=== PATIENT | female | born 1945 | race Caucasian/White ===

== ENCOUNTER 2018-06-28 13:58 | Emergency (ER) | payer MEDICARE, OTHER ==
[2018-06-28 15:24] LABS: #Eosinphils 0.4 thou/uL (0.0-0.7); #Lymphocytes 1.2 thou/uL (1.20-3.40); #Monocytes 0.3 thou/uL (0.11-0.59); #Neutrophils 3.6 thou/uL (1.40-6.50); %Basophils 0.3 % (0.0-1.0); %Eosinophils 6.6 % (0.0-10.0); %Lymphocytes 22.6 % (21.0-51.0); %Neutrophils 65.6 % (42.0-75.0); Hemoglobin 12.3 g/dL (12.0-16.0); Mean Corpuscular HGB CONC 32.7 g/dL (32.0-36.0); Mean Corpuscular Hemoglobin 29.6 pg (27.0-31.0); Mean Corpuscular Volume 90.6 fL (78.0-98.0); Mean Platelet Volume 7.5 fL (7.4-10.4); Platelet Count 179 thou/uL (130-400); RBC Distribution Width 12.8 % (11.5-14.5); Red Blood Cell (RBC) Count 4.14 mill/uL (4.20-5.40); White Blood Cell (WBC) Count 5.5 thou/uL (4.8-10.8)
[2018-06-28] MEDS ORDERED: Oxymetazoline HCl 0.05% ( 15 ML ) ONE (15:33)
[2018-06-28 15:46] LABS: ALT (SGPT) 19 U/L (8-55); AST (SGOT) 19 U/L (5-34); Albumin 4.5 g/dL (3.4-4.8); Alkaline Phosphatase 78 U/L (40-150); Anion Gap 15 mmol/L (10-20); BUN (Urea Nitrogen) 18 mg/dL (9.8-20.1); Bilirubin, Total 0.5 mg/dL (0.2-1.2); Calc. Creatinine Clearance 0 mL/min (70-130); Calcium 9.6 mg/dL (7.8-10.44); Carbon Dioxide 24 mmol/L (23-31); Chloride 104 mmol/L (98-107); Estimated GFR-MDRD 40; Globulin 2.3 g/dL (2.4-3.5); Glucose 120 mg/dL (83-110); Potassium 4.6 mmol/L (3.5-5.1); Protein, Total 6.8 g/dL (6.0-8.3); Sodium 138 mmol/L (136-145)
== END 2018-06-28 16:19 | disposition home or self-care (01) ==
LOC: ERS 13:58
DX: R04.0 Epistaxis (principal); E11.9 Type 2 diabetes mellitus without complications; E78.5 Hyperlipidemia, unspecified; I10 Essential (primary) hypertension
CPT/HCPCS: 30905; 36415; 80053; 85025

== ENCOUNTER 2018-09-03 21:33 | Inpatient (IN) | payer MEDICARE ==
--- NOTE | 2018-09-03 22:13 | RAD ---
FExam: Left ankle radiographs 3 views Provided clinical history: Pain status post injury FINDINGS: Obliquely oriented mildly displaced Scott B distal fibular fracture. Nondisplaced posterior malleolar fracture. Avulsion fracture medial malleolus. Widening of the ankle mortise. Joint spaces appear pre served. IMPRESSION: Distal tibial and fibular fractures with associated widening of the ankle mortise. Orthopedic consult ation is recommended.
[2018-09-03] MEDS ORDERED: Morphine 4 MG/ML VIAL ONE (22:25)
[2018-09-03] MEDS ORDERED: Ondansetron PF 4 MG/2 ML Vial ONE (22:25)
[2018-09-03] MEDS ORDERED: Bacitracin Zinc 1 Packet ONE (22:36)
--- NOTE | 2018-09-03 22:52 | RAD ---
FExam: Portable chest Provided clinical history: Preop FINDINGS: Cardiac and mediastinal silhouette is within normal limits. No focal consolidation, pleural fluid or pneumothorax evident. IMPRESSION: No evidence for an acute cardiopulmonary process.
[2018-09-03 23:03] LABS: #Eosinphils 0.3 thou/uL (0.0-0.7); #Lymphocytes 0.9 thou/uL (1.20-3.40); #Monocytes 0.4 thou/uL (0.11-0.59); #Neutrophils 3.2 thou/uL (1.40-6.50); %Basophils 0.2 % (0.0-1.0); %Eosinophils 5.6 % (0.0-10.0); %Lymphocytes 19.5 % (21.0-51.0); %Monocytes 7.6 % (0.0-10.0); %Neutrophils 67.2 % (42.0-75.0); Hemoglobin 12.1 g/dL (12.0-16.0); INR-International Normal Ratio 0.9; Mean Corpuscular HGB CONC 34.2 g/dL (32.0-36.0); Mean Corpuscular Hemoglobin 30.9 pg (27.0-31.0); Mean Corpuscular Volume 90.2 fL (78.0-98.0); Mean Platelet Volume 7.3 fL (7.4-10.4); PTT 26.8 SEC (22.9-36.1); Platelet Count 179 thou/uL (130-400); Prothrombin Time 12.2 SEC (12.0-14.7); RBC Distribution Width 11.7 % (11.5-14.5); Red Blood Cell (RBC) Count 3.93 mill/uL (4.20-5.40); White Blood Cell (WBC) Count 4.8 thou/uL (4.8-10.8)
[2018-09-03] MEDS ORDERED: Ondansetron PF 4 MG/2 ML Vial IVP PRN ×2 (23:12→23:57)
[2018-09-03] MEDS ORDERED: Dextrose 50% Abboject 50 ML SYRINGE SLOW IVP PRN (23:12)
[2018-09-03] MEDS ORDERED: hydrALAZINE 20 MG/ML VIAL SLOW IVP PRN (23:12)
[2018-09-03] MEDS ORDERED: Dextrose 5% in Water 1,000 ML IV PRN (23:12)
[2018-09-03] MEDS ORDERED: Ondansetron ODT 4 MG TAB PO PRN (23:12)
[2018-09-03 23:17] LABS: ALT (SGPT) 18 U/L (8-55); AST (SGOT) 18 U/L (5-34); Albumin 4.3 g/dL (3.4-4.8); Alkaline Phosphatase 78 U/L (40-150); Anion Gap 12 mmol/L (10-20); BUN (Urea Nitrogen) 26 mg/dL (9.8-20.1); Bilirubin, Total 0.4 mg/dL (0.2-1.2); Calc. Creatinine Clearance 0 mL/min (70-130); Calcium 9.7 mg/dL (7.8-10.44); Carbon Dioxide 29 mmol/L (23-31); Chloride 99 mmol/L (98-107); Estimated GFR-MDRD 31; Globulin 2.4 g/dL (2.4-3.5); Glucose 104 mg/dL (83-110); Potassium 3.2 mmol/L (3.5-5.1); Protein, Total 6.7 g/dL (6.0-8.3); Sodium 137 mmol/L (136-145)
[2018-09-03] MEDS ORDERED: traMADol HCl 50 MG TAB PO PRN (23:23)
[2018-09-03] MEDS ORDERED: Acetaminophen 500 MG TAB PO SCH (23:30)
[2018-09-03] MEDS ORDERED: cloNIDine 0.1 MG TAB PO PRN (23:34)
[2018-09-03] MEDS ORDERED: D5 1/2 NS w/20 mEq KCL 1,000 ML IV SCH (23:45)
[2018-09-03] MEDS ORDERED: Melatonin 3 MG TAB PO SCH (23:45)
[2018-09-03] MEDS ORDERED: Morphine 4 MG/ML VIAL SLOW IVP PRN (23:57)
[2018-09-03] MEDS ORDERED: Ondansetron ODT 4 MG TAB SL PRN (23:57)
[2018-09-03] MEDS ORDERED: traMADol HCl 50 MG TAB PO SCH (23:59)
--- NOTE | 2018-09-04 00:32 | HP ---
This is Kelsea Little NP dictating a report for Reynaldo Jimenez MD. REQUESTING PHYSICIAN: Dr. Quiroz. ATTENDING PHYSICIAN: Dr. Jimenez. HISTORY OF PRESENT ILLNESS: This is a 73-year-old female who presented to the emergency room via EMS status post a mechanical fall. The patient reports left ankle pain after falling. The patient also reports left shoulder contusion and abrasion to left elbow. The patient has good range of motion to left shoulder. The patient has been n.p.o. since 1930. The patient denies feeling weak, dizzy, having any chest pain or palpitations or dizziness prior to falling. States she is walking on the hallway with multiple items in her hand, heading to bed in which she is walking on a slight incline and fell. The patient did bump the left side of her forehead. The patient has a small contusion. No loss of consciousness. No nausea or vomiting. The patient had a left splint placed by the emergency room physician to the left ankle. PAST MEDICAL HISTORY: Diabetes, hyperlipidemia, hypertension, osteoarthritis. PAST SURGICAL HISTORY: Hysterectomy, bilateral knee replacement, last one left knee in January 2018 due to arthritis, cataract surgery, and tonsillectomy. SOCIAL HISTORY: The patient lives at home with her . The patient drinks socially occasionally. The patient denies any drug use. The patient denies smoking. REVIEW OF SYSTEMS: A 10-point review of systems is negative unless otherwise indicated in the above HPI. LABORATORY DATA: WBC 4.8, RBC 3.93, hemoglobin 12.1, hematocrit 35.5, platelets 179. PT 12.2, INR is 0.9, APTT 26.8. CMP pending. A 12-lead EKG, sinus Germán of 59. No ST elevation or ST-segment changes. Ankle x-ray, distal tibia and fibular fractures with associated widening in the ankle mortise. Chest x-ray, no evidence of an acute cardiopulmonary process. IMPRESSION: 1. Mechanical fall. 2. Left distal tib-fib fracture. 3. Acute traumatic pain. 4. History of hypertension, diabetes, osteoarthritis, and nerve pain. PLAN: We will admit the patient to the surgical ortho floor. The patient will be placed n.p.o. After midnight. Dr. Jimenez plans to take the patient for repair of left ankle tomorrow morning sometime. The patient will be placed on pain regimen, bowel regimen, and gastric prophylaxis. We will place a PT/OT consult for after surgery. We will also place a rehab screen just in case the patient needs inpatient rehab. The plan will be discussed with Dr. Mcclendon after this dictation. Job ID: [id number]
[2018-09-04] MEDS: Morphine 4 MG/ML VIAL SLOW IVP PRN ×2 (00:41→04:00)
[2018-09-04] MEDS: Acetaminophen 500 MG TAB PO SCH ×5 (00:42→21:16)
[2018-09-04] MEDS: traMADol HCl 50 MG TAB PO SCH ×3 (00:42→12:25)
[2018-09-04] MEDS: Sodium Chloride 0.9% 1,000 ML IV SCH ×3 (00:43→23:14)
[2018-09-04 02:10] VITALS: BMI 32.3
[2018-09-04] MEDS: Ibuprofen 800 MG TAB PO SCH ×3 (06:24→21:16)
[2018-09-04 07:16] LABS: #Eosinphils 0.3 thou/uL (0.0-0.7); #Monocytes 0.4 thou/uL (0.11-0.59); #Neutrophils 2.3 thou/uL (1.40-6.50); %Basophils 0.3 % (0.0-1.0); %Eosinophils 6.8 % (0.0-10.0); %Lymphocytes 24.9 % (21.0-51.0); %Monocytes 9.7 % (0.0-10.0); %Neutrophils 58.2 % (42.0-75.0); Hemoglobin 10.4 g/dL (12.0-16.0); Mean Corpuscular Hemoglobin 31.1 pg (27.0-31.0); Mean Corpuscular Volume 91.4 fL (78.0-98.0); Mean Platelet Volume 7.6 fL (7.4-10.4); Platelet Count 138 thou/uL (130-400); RBC Distribution Width 11.6 % (11.5-14.5); Red Blood Cell (RBC) Count 3.36 mill/uL (4.20-5.40); White Blood Cell (WBC) Count 3.9 thou/uL (4.8-10.8)
[2018-09-04 07:35] LABS: Anion Gap 9 mmol/L (10-20); BUN (Urea Nitrogen) 24 mg/dL (9.8-20.1); Calc. Creatinine Clearance 50 mL/min (70-130); Calcium 8.5 mg/dL (7.8-10.44); Carbon Dioxide 29 mmol/L (23-31); Chloride 103 mmol/L (98-107); Estimated GFR-MDRD 35; Glucose 105 mg/dL (83-110); Magnesium 1.8 mg/dL (1.6-2.6); Phosphorus 3.9 mg/dL (2.3-4.7); Potassium 3.8 mmol/L (3.5-5.1); Sodium 137 mmol/L (136-145)
[2018-09-04] MEDS ORDERED: CEFAZOLIN 2 GM in Premix Bag 1 BAG IVPB SCH (08:15)
--- NOTE | 2018-09-04 08:38 | CON ---
DATE OF CONSULTATION: We were asked by Trauma and Emergency Room to see the patient. The patient was in her normal state of health yesterday when she thinks she missed a step on the stairs and fell down, had immediate left ankle pain. She also complains of some left shoulder pain and hit the left side of her forehead, but no loss of consciousness and she remembers the incident well. The patient was brought to the emergency room by ambulance and then was admitted. They did put a splint on her left ankle, dressed up her left elbow, but she still has quite a bit of left shoulder pain. No numbness or tingling in the upper extremities or lower extremities and states her pain is stinging type pain. Her Jon wrap was loosened last night, but this did help, but she still has quite a bit of pain. PAST MEDICAL HISTORY: Diabetes, hyperlipidemia, hypertension, and osteoarthritis. PAST SURGICAL HISTORY: Hysterectomy, bilateral knee replacement, cataract surgery, and tonsils. SOCIAL HISTORY: Moved to [place] to be with her children. Lives at home with her . Has very occasional EtOH beverages. No alcohol or nicotine products. ALLERGIES: NO KNOWN DRUG ALLERGIES. MEDICATIONS: 1. Amitriptyline. 2. . 3. Calcium citrate with vitamin D. 4. Clonidine. 5. Duloxetine. 6. Nexium. 7. Estradiol. 8. Flonase. 9. Lasix. 10. Gabapentin. 11. Hydralazine. 12. Levothyroxine. 13. Losartan. 14. Melatonin. 15. Meloxicam. 16. Multivitamins. 17. Bystolic. 18. Polyethylene glycol. 19. Crestor. 20. Januvia. 21. Tramadol. REVIEW OF SYSTEMS: Denies any chest pain, shortness of breath, bowel or bladder issues, just left shoulder and ankle pain. Otherwise, rest review of systems negative. PHYSICAL EXAMINATION: GENERAL: Well-nourished, well-developed, very pleasant female in room 3338, in no acute distress. Speech clear. Affect pleasant. Answers questions appropriately. She is oriented x3. HEENT: She has a little bit of a contusion in the left forehead. Otherwise, face is symmetric. Tongue midline. NECK: Supple. Trachea midline. EXTREMITIES: Upper extremities; equal size, shape, and symmetry. Normal bulk and tone with the exception of her elbow, which is bandaged. Left shoulder exam, she is able to move it fairly well. I do not feel any crepitus or popping in her shoulder, but she does have quite a bit of pain with moving that shoulder. All of her strength sensations in the upper extremities are intact. Lower extremity exam, left lower extremity is splinted, which she is able to wiggle her toes and has good sensations. Right lower extremity, normal exam. IMAGING DATA: X-rays show a left ankle fracture, distal tibia and fibula areas. ASSESSMENT: Left ankle fracture. PLAN: I spoke with the patient. She is currently n.p.o. I would like to get her on for the surgery today due to plating and screws. I explained that procedure to the patient. She is happy with the plan. We will keep her n.p.o. She has been cleared by Trauma. Her questions and concerns have been addressed. Again, she is amenable to go forth with surgery. Job ID: [id number]
--- NOTE | 2018-09-04 09:22 | RAD ---
LEFT SHOULDER THREE VIEWS: History: Pain. FINDINGS: Humeral head is normally positioned. Very mild degenerative change at the glenohumeral joint. Mild sp urring at the AC joint. No fracture or acute abnormality. IMPRESSION: No acute findings. POS: [facility]
--- NOTE | 2018-09-04 09:23 | RAD ---
FXR Sacrum and Coccyx STANDARD: 09/04/2018 8:00 AM 3 views provided CLINICAL INDICATION: Fall with pain COMPARISON: None. FINDINGS: Fracture:No fracture. Arthropathy:Moderate arthropathy. Incidental findings:Pelvic phleboliths IMPRESSION: 1. No acute osseous abnormality.
[2018-09-04] MEDS: Gabapentin 300 MG CAP PO SCH ×3 (09:51→21:17)
[2018-09-04] MEDS: Famotidine/PF 20 mg/2ml Vial SLOW IVP SCH (09:51)
[2018-09-04] MEDS ORDERED: Cyclobenzaprine 10 MG TAB PO PRN (09:54)
[2018-09-04] MEDS ORDERED: Nebivolol HCl 5 MG TAB PO SCH ×2 (10:15→21:00)
[2018-09-04] MEDS: Polyethylene Glycol 3350 17 GM Packet PO SCH (11:09)
[2018-09-04] MEDS: Senokot S 8.6-50 MG TAB PO SCH ×2 (11:09→21:18)
[2018-09-04] MEDS ORDERED: Ropivacaine 0.5% HCl/PF (150 MG/30 ML VIAL) ONE (13:10)
[2018-09-04] MEDS ORDERED: Promethazine HCl 25 MG/ML VIAL SLOW IVP PRN ×2 (13:51→15:55)
[2018-09-04] MEDS ORDERED: Promethazine HCl 25 MG/ML VIAL IM PRN ×3 (13:51→15:55)
[2018-09-04] MEDS ORDERED: Ondansetron HCl/PF 4 MG/2 ML Vial IVP PRN ×2 (13:51→15:55)
[2018-09-04] MEDS ORDERED: PROPOFOL 200 MG/20 ML VIAL ONE (13:52)
[2018-09-04] MEDS ORDERED: PHENYLEPHRINE-NS 100 MCG/ML 10 ML SYRINGE ONE (13:52)
[2018-09-04] MEDS ORDERED: Ondansetron PF 4 MG/2 ML Vial ONE (13:52)
[2018-09-04] MEDS ORDERED: Dexamethasone 20 MG/5 ML VIAL ONE (13:52)
[2018-09-04] MEDS ORDERED: ePHEDrine 50 MG/ML VIAL ONE (13:52)
[2018-09-04] MEDS ORDERED: Lidocaine 1% PF 5 ML VIAL ONE (13:52)
[2018-09-04] MEDS ORDERED: Midazolam HCl 2 mg/2 ml Vial ONE (14:00)
[2018-09-04] MEDS ORDERED: Fentanyl 100 MCG/2 ML VIAL ONE ×2 (14:00→14:22)
[2018-09-04] MEDS ORDERED: Bupivacaine PF 0.5% 30 ML VIAL ONE (14:09)
[2018-09-04] MEDS ORDERED: HYDROcodone/Acetaminophen 10/325 mg Tablet PO PRN ×2 (14:39)
[2018-09-04] MEDS ORDERED: Ropivacaine 0.2% 550 ML 550 ML NERVE BLCK SCH (14:39)
[2018-09-04] MEDS ORDERED: Zolpidem Tartrate 5 MG TAB PO PRN (14:39)
[2018-09-04] MEDS ORDERED: Ondansetron PF 4 MG/2 ML Vial IVP PRN (14:39)
[2018-09-04] MEDS ORDERED: traMADol HCl 50 MG TAB PO PRN ×2 (14:39)
[2018-09-04] MEDS ORDERED: Fentanyl 100 MCG/2 ML VIAL IV PRN (14:40)
[2018-09-04] MEDS ORDERED: Ketorolac Tromethamine 30 MG/ML VIAL IVP PRN (15:55)
[2018-09-04] MEDS ORDERED: HYDROmorphone 2 MG/ML VIAL SLOW IVP PRN (15:55)
[2018-09-04] MEDS ORDERED: Morphine Sulfate 2 MG/ML SYRINGE SLOW IVP PRN (15:55)
[2018-09-04] MEDS ORDERED: Meperidine HCl/PF 25 MG/ML VIAL SLOW IVP PRN (15:55)
--- NOTE | 2018-09-04 16:47 | RAD ---
LEFT ANKLE FOUR VIEW 09/04/18 HISTORY: ORIF. COMPARISON: None. FINDINGS: Satisfactory postoperative appearance distal fibular fracture with lateral plate and screw fixation. No syndesmotic screw. IMPRESSION: Satisfactory postoperative appearance. POS: [facility]
--- NOTE | 2018-09-04 17:21 | PRG ---
DATE OF SERVICE: 09/03/2018 SUBJECTIVE: The patient was seen this morning sitting up in bed. Reports pain is well controlled, but was having muscle spasms earlier during the morning. She is n.p.o. for OR today with Dr. Jimenez for a left distal tib-fib fracture. She denies nausea, vomiting, or diarrhea at this time. OBJECTIVE: VITAL SIGNS: Temperature 97.9, pulse 56, respirations 18, oxygen saturation 96% on room air, blood pressure 107/70. GENERAL: Well-appearing elderly female, sitting up in bed with no signs of acute distress. PULMONARY: Equal chest rise and fall. Clear breath sounds bilaterally, no acute respiratory distress. CARDIAC: Regular rate and rhythm. No murmurs, gallops, or rubs. GI: Abdomen is soft, nontender, nondistended. EXTREMITIES: Left lower extremity with splint in place. 2+ pulses in all extremities. Gross motor and sensation in all extremities. No significant swelling noted. LABORATORY FINDINGS: White count 3.9, hemoglobin 10.4, hematocrit 30.7, platelets 138. Sodium 137, potassium 3.8, chloride 103, carbon dioxide 29, BUN 24, creatinine 1.47, glucose 105, phosphorus 3.9, magnesium 1.8. DIAGNOSTIC FINDINGS: There are no new diagnostic findings to report. ASSESSMENT: 1. Status post mechanical fall. 2. Left distal tibial-fibular fracture. 3. Acute kidney injury, improving. 4. History of diabetes. 5. Hyperlipidemia. 6. Hypertension. 7. Osteoarthritis. PLAN: We will start the patient on p.o. Flexeril. She is still n.p.o. with normal saline at 120 an hour. We will discontinue fluids postoperatively. Continue to hold antihypertensive medications and her Bystolic. We will restart those medications as clinically indicated. X-ray completed of the left shoulder and sacrum were negative for injuries. Postop, the patient will start physical and occupational therapy to assess whether she is safe to go home versus inpatient rehab. She will receive a diabetic diet postoperatively. The patient was discussed with Dr. Aaron. Job ID: [id number]
[2018-09-04] MEDS ORDERED: NEBIVOLOL HCL PO SCH (21:00)
[2018-09-04] MEDS: Rosuvastatin 10 MG TAB PO SCH (21:17)
[2018-09-04] MEDS: Amitriptyline HCl 100 MG TAB PO SCH (21:18)
[2018-09-04] MEDS: Calcium Carbonate + Vit D 1 TAB PO SCH (21:18)
[2018-09-04] MEDS: CEFAZOLIN 2 GM in Premix Bag 1 BAG IVPB SCH (21:19)
[2018-09-04] MEDS: Melatonin 3 MG TAB PO SCH (21:19)
--- NOTE | 2018-09-04 21:30 | OP ---
DATE OF PROCEDURE: 09/04/2018 PREOPERATIVE DIAGNOSIS: Left bimalleolar ankle fracture. POSTOPERATIVE DIAGNOSIS: Left bimalleolar ankle fracture. PROCEDURE PERFORMED: Open reduction and internal fixation of left lateral malleolus fracture. ANESTHESIA: General. RIBBER: Paloma Juan. IMPLANT: Synthes 1/3 tubular 7-hole plate with small fragment screws. TOURNIQUET TIME: 35 minutes at 300 mmHg. COMPLICATIONS: None. DRAINS: None. SPECIMEN: None. OUTCOME: Near-anatomic alignment of her ankle. INDICATIONS FOR PROCEDURE: The patient is a 73-year-old lady status post ground level fall sustaining twisting injury of her left ankle. Preoperative x-rays reveal a displaced lateral malleolus with lateral displacement of the talus within the mortise and a small nondisplaced posterior malleolar fracture. After discussion with the patient including risks and benefits, we decided to proceed with open reduction and internal fixation. Risks include, but are not limited to bleeding, infection, nerve injury, DVT, PE, ankle stiffness, ankle arthritis, loss of limb or life. The patient appears to understand and does wish to proceed. Informed consent has been obtained. DESCRIPTION OF PROCEDURE: The patient was brought to the operating room and a time-out performed followed by induction of general anesthesia. Next, the patient was positioned supine on the OR table and a sterile prep and drape was performed in the left lower extremity. The limb was then exsanguinated with Esmarch bandage, tourniquet inflated to 300 mmHg. Next, a vertical incision was made over the lateral malleolus. After skin was sharply incised, dissection was carried down bluntly to the underlying fracture. The periosteum was scored with a knife and then reflected anteriorly and posteriorly to allow for visualization of the fracture edges. The fracture was then reduced and held in place with a bone tenaculum. Next, a 7-hole 1/3 tubular plate was contoured to fit the lateral cortex of the distal fibula. This was then held in place with 3 cortical screws proximally and 3 cancellous screws distally. At the completion of this AP, lateral and mortise C-arm images were obtained that showed anatomic alignment of the fracture, religion of the talus and an anatomic alignment and still no change in alignment of the nondisplaced very small posterior malleolar fracture. As such, the wound was irrigated with bulb syringe and closed in layers with 0 Vicryl for the fascia, 2-0 Vicryl subcutaneously, and 3-0 nylon in horizontal mattress fashion for the skin. Xeroform gauze, Webril, and fiberglass splint were applied to the ankle and then the patient was transferred to recovery room in stable condition. There were no complications. She tolerated the procedure well. Job ID: [id number]
[2018-09-05] MEDS: Acetaminophen 500 MG TAB PO SCH ×4 (04:15→20:37)
[2018-09-05] MEDS: Insulin Regular 300 UNITS/3 ML VIAL SC PRN ×2 (06:14→11:38)
[2018-09-05] MEDS: CEFAZOLIN 2 GM in Premix Bag 1 BAG IVPB SCH ×2 (06:15→14:42)
[2018-09-05 06:16] LABS: #Lymphocytes 0.5 thou/uL (1.20-3.40); #Monocytes 0.1 thou/uL (0.11-0.59); #Neutrophils 5.4 thou/uL (1.40-6.50); %Basophils 0.2 % (0.0-1.0); %Eosinophils 0.4 % (0.0-10.0); %Lymphocytes 8.5 % (21.0-51.0); %Monocytes 1.9 % (0.0-10.0); Hemoglobin 10.3 g/dL (12.0-16.0); Mean Corpuscular HGB CONC 33.6 g/dL (32.0-36.0); Mean Corpuscular Hemoglobin 30.9 pg (27.0-31.0); Mean Platelet Volume 7.4 fL (7.4-10.4); Platelet Count 145 thou/uL (130-400); RBC Distribution Width 11.4 % (11.5-14.5); Red Blood Cell (RBC) Count 3.33 mill/uL (4.20-5.40)
[2018-09-05] MEDS: Levothyroxine Sodium 50 MCG TAB PO SCH (06:16)
[2018-09-05] MEDS: Ibuprofen 800 MG TAB PO SCH ×3 (06:16→20:44)
[2018-09-05 06:35] LABS: Anion Gap 11 mmol/L (10-20); BUN (Urea Nitrogen) 24 mg/dL (9.8-20.1); Calc. Creatinine Clearance 43 mL/min (70-130); Calcium 8.5 mg/dL (7.8-10.44); Carbon Dioxide 23 mmol/L (23-31); Chloride 104 mmol/L (98-107); Estimated GFR-MDRD 30; Glucose 161 mg/dL (83-110); Magnesium 1.8 mg/dL (1.6-2.6); Phosphorus 3.8 mg/dL (2.3-4.7); Potassium 4.3 mmol/L (3.5-5.1); Sodium 134 mmol/L (136-145)
[2018-09-05] MEDS: Nebivolol HCl 5 MG TAB PO SCH ×2 (08:42→20:36)
[2018-09-05] MEDS: DULoxetine 60 MG CAP PO SCH (08:44)
[2018-09-05] MEDS: Estradiol 1 MG TAB PO SCH (08:45)
[2018-09-05] MEDS: Heparin 5,000 UNITS/ML VIAL SC SCH ×3 (08:46→20:39)
[2018-09-05] MEDS: Famotidine/PF 20 mg/2ml Vial SLOW IVP SCH (08:48)
[2018-09-05] MEDS: Calcium Carbonate + Vit D 1 TAB PO SCH ×2 (08:49→20:37)
[2018-09-05] MEDS: Multivit, Therapeutic 1 TAB PO SCH (08:49)
[2018-09-05] MEDS: Senokot S 8.6-50 MG TAB PO SCH ×2 (08:50→20:36)
[2018-09-05] MEDS: Gabapentin 300 MG CAP PO SCH ×3 (08:50→20:36)
[2018-09-05] MEDS: hydrALAZINE 25 MG TAB PO SCH ×3 (08:50→20:37)
[2018-09-05] MEDS ORDERED: hydrALAZINE 25 MG TAB PO SCH (09:00)
[2018-09-05] MEDS: Polyethylene Glycol 3350 17 GM Packet PO SCH (11:37)
--- NOTE | 2018-09-05 14:51 | PRG ---
DATE OF SERVICE: 09/05/2018 SUBJECTIVE: The patient was seen this morning sitting up in bed. She is postoperative day one. Reported pain is well controlled and she has a block to her left lower extremity. She has not yet worked with Physical or Occupational Therapy. Tolerating a regular diabetic diet. Pain was well controlled. She denies nausea, vomiting, and diarrhea this time. Voiding without difficulty. OBJECTIVE: VITAL SIGNS: Temperature 97.9, pulse 69, respirations 16, oxygen saturation 97% on room air, and blood pressure 146/67. GENERAL: Well-appearing elderly female, sitting up in bed with no signs of acute distress. PULMONARY: Equal chest rise and fall. Clear breath sounds bilaterally. No acute respiratory distress. CARDIAC: Regular rate and rhythm. No murmurs, gallops, or rubs. GI: Abdomen is soft, nontender, nondistended. EXTREMITIES: Left lower extremity with splint in place. 2+ pulses in all extremities. Gross motor intact with no sensation to left lower extremity. No significant swelling noted. LABORATORY FINDINGS: White count 6.0, hemoglobin 10.3, hematocrit 30.6, platelets 145. Sodium 134, potassium 4.3, chloride 104, carbon dioxide 23, BUN 29, creatinine 1.69, glucose 161, phos 3.8, and magnesium 1.8. DIAGNOSTIC FINDINGS: There are no new diagnostic findings to report. ASSESSMENT: 1. Status post mechanical fall. 2. Left distal tib-fib fracture. 3. Acute kidney injury, improving. 4. History of diabetes, hyperlipidemia, hypertension, and osteoarthritis. PLAN: The patient went to the OR yesterday and is yet to work with Physical Therapy. She may be able to go home; however, she is having a lot of left shoulder pain. There is no bony injury there, but it may be difficult for her to use a walker or crutches and thus may need to go to an acute rehab before going home. We will start her home hydralazine and Bystolic. We will hold the other antihypertensive medications at this time. We will follow up with chemistry tomorrow to reassess the kidney function. She will be started on subcu heparin due to her acute kidney injury. The patient was seen and examined by Dr. Aaron and myself this morning during rounds. Job ID: [id number]
[2018-09-05] MEDS: Rosuvastatin 10 MG TAB PO SCH (20:36)
[2018-09-05] MEDS: Melatonin 3 MG TAB PO SCH (20:37)
[2018-09-05] MEDS: Amitriptyline HCl 100 MG TAB PO SCH (20:38)
[2018-09-06] MEDS: Acetaminophen 500 MG TAB PO SCH ×2 (04:27→08:22)
[2018-09-06] MEDS: Ibuprofen 800 MG TAB PO SCH (05:32)
[2018-09-06] MEDS: Levothyroxine Sodium 50 MCG TAB PO SCH (05:32)
[2018-09-06] MEDS: Multivit, Therapeutic 1 TAB PO SCH (08:20)
[2018-09-06] MEDS: Estradiol 1 MG TAB PO SCH (08:20)
[2018-09-06] MEDS: DULoxetine 60 MG CAP PO SCH (08:20)
[2018-09-06] MEDS: Nebivolol HCl 5 MG TAB PO SCH (08:20)
[2018-09-06] MEDS: Gabapentin 300 MG CAP PO SCH (08:20)
[2018-09-06] MEDS: Senokot S 8.6-50 MG TAB PO SCH (08:21)
[2018-09-06] MEDS: Heparin 5,000 UNITS/ML VIAL SC SCH (08:21)
[2018-09-06] MEDS: hydrALAZINE 25 MG TAB PO SCH (08:21)
[2018-09-06] MEDS: Polyethylene Glycol 3350 17 GM Packet PO SCH (08:22)
[2018-09-06] MEDS: Calcium Carbonate + Vit D 1 TAB PO SCH (08:22)
[2018-09-06] MEDS: Famotidine/PF 20 mg/2ml Vial SLOW IVP SCH (08:34)
[2018-09-06 09:03] LABS: Anion Gap 11 mmol/L (10-20); BUN (Urea Nitrogen) 27 mg/dL (9.8-20.1); Calc. Creatinine Clearance 43 mL/min (70-130); Calcium 9.2 mg/dL (7.8-10.44); Carbon Dioxide 27 mmol/L (23-31); Chloride 106 mmol/L (98-107); Estimated GFR-MDRD 30; Glucose 95 mg/dL (83-110); Magnesium 2.1 mg/dL (1.6-2.6); Phosphorus 3.3 mg/dL (2.3-4.7); Potassium 4.2 mmol/L (3.5-5.1); Sodium 140 mmol/L (136-145)
[2018-09-06 11:30] VITALS: BP 124/68; TEMP 98
--- NOTE | 2018-09-07 03:38 | DIS ---
DATE OF ADMISSION: 09/03/2018 DATE OF DISCHARGE: 09/06/2018 ADMISSION DIAGNOSES: 1. Status post mechanical fall. 2. Left distal tib-fib fracture. 3. Acute kidney injury. DISCHARGE DIAGNOSIS: Left distal tib-fib fracture, status post mechanical fall from standing. CONSULTING PHYSICIAN: Dr. Jimenez, Orthopedic Surgery. PROCEDURES: On 09/04/2018, she had an ORIF of the left lateral malleolus fracture. HOSPITAL COURSE: The patient is a 73-year-old female who came to the emergency department status post mechanical fall from standing with no loss of consciousness. Upon her evaluation, it was found that she had a left distal tib-fib fracture and ANNETTE. She does have a history of diabetes, hyperlipidemia, hypertension, and osteoarthritis. She was admitted to the Trauma Service and Dr. Jimenez was consulted, who took her to the operating room on September 04, 2018 where she received an ORIF of the left lateral medial malleolus. Postop, the patient was restarted on some of her home medications, many of her antihypertensive medications were held as they were not indicated at that time. She was seen by Physical Therapy, who reported that she could go to rehab if she felt she needed it, but would also likely be safe to go home. She does have plenty of help around her and her who lives with her. The next day, she did request to go home. The patient was advised to follow up with her primary care doctor for further management of her antihypertensive medications as they were not all indicated to restart at the time of her discharge. DISCHARGE DISPOSITION: Home with home physical therapy. DISCHARGE CONDITION: Satisfactory. PHYSICAL EXAMINATION: VITAL SIGNS: Temperature 98, pulse 73, respiratory rate 16, oxygen saturation 91% on room air, blood pressure 124/68. GENERAL: Well-appearing elderly female, sitting up in chair next to bed, no signs of acute distress. PULMONARY: Equal chest rise and fall. Clear breath sounds bilaterally. No signs of acute pulmonary distress. CARDIAC: Regular rate and rhythm. No murmurs, gallops, or rubs. GASTROINTESTINAL: Abdomen is soft, nontender, nondistended. EXTREMITIES: 2+ pulses in all extremities. Left distal leg with splint in place, it is clean, dry, and intact. No significant swelling noted. DISCHARGE INSTRUCTIONS: The patient was discharged home with home physical therapy. She has activity as tolerated with nonweightbearing to left lower extremity. She is to continue a diabetic diet. She is going to have physical therapy with home health. She also can have a walker. DISCHARGE MEDICATIONS: Include; 1. Tylenol. 2. Aspirin. 3. Flexeril. 4. Gabapentin. 5. Ibuprofen. 6. MiraLAX. 7. Tramadol. 8. Multivitamins. 9. Flonase. 10. Melatonin. 11. Januvia. 12. Levothyroxine. 13. Hydralazine. 14. Estradiol. 15. Nexium. 16. Crestor. 17. Cymbalta. 18. Clonidine. 19. Bystolic. 20. Fiorinal. 21. Amitriptyline. 22. Calcium citrate plus vitamin D caplet. 23. Allopurinol. 24. Chlorthalidone. We will hold the home Mobic, losartan, gabapentin, and Lasix. She was also prescribed [place] by the orthopedic surgery team. FOLLOWUP APPOINTMENTS: She is to follow up with Dr. Jimenez in 7 days and she is to see her primary care doctor within 7 to 10 days. This is merely a summary of the patient's hospitalization. For full details, please see her medical record in its entirety. Job ID: [id number]
== END 2018-09-06 12:30 | disposition home health service (06) | DRG 493 ==
LOC: ERS 21:33 → SURG A 22:33
PROVIDERS: ADMIT Specialist; ATTEND Specialist
PROC: 0QSK04Z Reposition Left Fibula with Internal Fixation Device, Open Approach (ICD-10-PCS; principal; 2018-09-04)
DX: S82.842A Displaced bimalleolar fracture of left lower leg, initial encounter for closed fracture (principal); N17.9 Acute kidney failure, unspecified; W10.9XXA Fall (on) (from) unspecified stairs and steps, initial encounter; Y92.9 Unspecified place or not applicable; S40.012A Contusion of left shoulder, initial encounter; S50.312A Abrasion of left elbow, initial encounter; S00.83XA Contusion of other part of head, initial encounter; I10 Essential (primary) hypertension; E11.9 Type 2 diabetes mellitus without complications; E78.5 Hyperlipidemia, unspecified; Z96.653 Presence of artificial knee joint, bilateral; M19.90 Unspecified osteoarthritis, unspecified site; Z98.49 Cataract extraction status, unspecified eye; Z90.710 Acquired absence of both cervix and uterus; Z79.84 Long term (current) use of oral hypoglycemic drugs; Z79.899 Other long term (current) drug therapy
CPT/HCPCS: 29515; 36415; 36416; 71045; 72220; 76000; 80048; 80053; 83735; 84100; 85025; 85610; 85730; 93005; 96361; 96374; 96375; A4306; C1713; G0390; J0131; J1100; J1644; J1815; J2001; J2250; J2270; J2405; J2704; J2795; J3010; J3490; S0020; S0028

== ENCOUNTER 2021-07-06 08:24 | Outpatient (CLI) | payer MEDICARE | END 2021-07-06 08:25 | disposition home or self-care (01) | LOC: RAD 08:24 | PROVIDERS: ATTEND Internal Medicine Critical Care Medicine | DX: R06.00 Dyspnea, unspecified (principal) | CPT/HCPCS: 71046 ==

== ENCOUNTER 2021-07-15 11:36 | Outpatient (CLI) | payer MEDICARE | END 2021-07-15 11:37 | disposition home or self-care (01) | LOC: CT 11:36 | PROVIDERS: ATTEND Internal Medicine Critical Care Medicine | DX: R06.00 Dyspnea, unspecified (principal); M47.814 Spondylosis without myelopathy or radiculopathy, thoracic region; M51.34 Other intervertebral disc degeneration, thoracic region; K80.20 Calculus of gallbladder without cholecystitis without obstruction; R91.8 Other nonspecific abnormal finding of lung field | CPT/HCPCS: 71275; 82565 ==

== ENCOUNTER 2021-10-13 10:54 | Outpatient (CLI) | payer MEDICARE | END 2021-10-13 10:55 | disposition home or self-care (01) | LOC: CTENTCT 10:54 | PROVIDERS: ATTEND Specialist | DX: J34.2 Deviated nasal septum (principal) | CPT/HCPCS: 70486 ==

== ENCOUNTER 2021-11-23 07:36 | Outpatient (CLI) | payer MEDICARE | END 2021-11-23 07:37 | disposition home or self-care (01) | LOC: BICULT 07:36 | PROVIDERS: ATTEND Internal Medicine Nephrology | DX: I13.10 Hypertensive heart and chronic kidney disease without heart failure, with stage 1 through stage 4 chronic kidney disease, or unspecified chronic kidney disease (principal); E11.22 Type 2 diabetes mellitus with diabetic chronic kidney disease; N18.9 Chronic kidney disease, unspecified; E78.5 Hyperlipidemia, unspecified; E03.9 Hypothyroidism, unspecified; K21.9 Gastro-esophageal reflux disease without esophagitis; M19.90 Unspecified osteoarthritis, unspecified site | CPT/HCPCS: 76770; 93975 ==

== ENCOUNTER 2021-12-29 11:18 | Outpatient (CLI) | payer MEDICARE | END 2021-12-29 11:19 | disposition home or self-care (01) | LOC: MRI 11:18 | PROVIDERS: ATTEND Family Medicine | DX: M51.16 Intervertebral disc disorders with radiculopathy, lumbar region (principal); M47.26 Other spondylosis with radiculopathy, lumbar region; G89.4 Chronic pain syndrome | CPT/HCPCS: 72100; 72148 ==

== ENCOUNTER 2022-01-31 08:16 | Outpatient (CLI) | payer MEDICARE | END 2022-01-31 08:17 | disposition home or self-care (01) | LOC: BICMAMMO 08:16 | PROVIDERS: ATTEND Internal Medicine Hematology & Oncology | DX: N64.4 Mastodynia (principal); N64.59 Other signs and symptoms in breast | CPT/HCPCS: 76642; 77066; G0279 ==

== ENCOUNTER 2022-07-26 10:25 | Outpatient (CLI) | payer MEDICARE ==
[2022-07-26 11:07] LABS: Hemoglobin 10.5 g/dL (12.0-15.5); Mean Corpuscular HGB CONC 31.8 g/dL (32.0-36.0); Mean Corpuscular Hemoglobin 28.9 pg (27.0-33.0); Mean Corpuscular Volume 90.9 fl (81.6-98.3); Mean Platelet Volume 9.5 fl (7.4-10.4); Platelet Count 235 10x3/uL (150-450); Red Blood Cell (RBC) Count 3.63 10x6/uL (3.90-5.03); White Blood Cell (WBC) Count 4.5 10x3/uL (3.5-10.5)
[2022-07-26 11:35] LABS: INR-International Normal Ratio 0.9; PTT 32.8 sec (22.0-33.0); Prothrombin Time 10.3 sec (9.5-12.1)
[2022-07-26 12:02] LABS: Anion Gap 14 mmol/L (10-20); BUN (Urea Nitrogen) 22 mg/dL (9.8-20.1); Calc. Creatinine Clearance 0 mL/min (70-130); Calcium 9.3 mg/dL (7.8-10.44); Carbon Dioxide 22 mmol/L (23-31); Chloride 105 mmol/L (98-107); Estimated GFR 36; Glucose 220 mg/dL (83-110); Potassium 4.4 mmol/L (3.5-5.1); Sodium 137 mmol/L (136-145)
== END 2022-07-26 10:26 | disposition home or self-care (01) ==
LOC: LABBT 10:25
PROVIDERS: ATTEND Surgery
DX: Z01.812 Encounter for preprocedural laboratory examination (principal); M48.062 Spinal stenosis, lumbar region with neurogenic claudication; M51.16 Intervertebral disc disorders with radiculopathy, lumbar region; M51.26 Other intervertebral disc displacement, lumbar region
CPT/HCPCS: 80048; 85027; 85610; 85730

== ENCOUNTER 2022-07-29 05:54 | Observation (INO) | payer MEDICARE ==
[2022-07-28 13:13] VITALS: BMI 28.2
[2022-07-29] MEDS ORDERED: Fentanyl 250 MCG/5 ML VIAL ONE (06:13)
[2022-07-29] MEDS ORDERED: SUGAMMADEX SODIUM 200 MG/2 ML VIAL ONE (06:14)
[2022-07-29] MEDS ORDERED: Dexmedetomidine 200 MCG/2 ML VIAL ONE (06:14)
[2022-07-29] MEDS ORDERED: Vancomycin 1 GM VIAL ONE (06:28)
[2022-07-29] MEDS ORDERED: Thrombin 5000 UNITS/5 ML VIAL ONE (06:28)
[2022-07-29 07:02] LABS: SARS-CoV-2 NAA Rapid Test Not Detected (NotDetected)
[2022-07-29] MEDS ORDERED: MINERAL OIL/WHITE PETROLATUM 3.5 GM TUBE ONE (07:17)
[2022-07-29] MEDS ORDERED: Sodium Chloride 0.9% 100 ML ONE (07:21)
[2022-07-29] MEDS ORDERED: CEFAZOLIN 2 GM VIAL ONE (07:21)
[2022-07-29] MEDS ORDERED: PROPOFOL 200 MG/20 ML VIAL ONE (07:50)
[2022-07-29] MEDS ORDERED: ePHEDrine 50 MG/ML VIAL ONE (07:50)
[2022-07-29] MEDS ORDERED: Lidocaine 1% PF 5 ML VIAL ONE (07:50)
[2022-07-29] MEDS ORDERED: Rocuronium Bromide 10 MG/ML (10ML VIAL) ONE (07:50)
[2022-07-29] MEDS ORDERED: PHENYLEPHRINE-NS 100 MCG/ML 10 ML SYRINGE ONE (07:50)
[2022-07-29] MEDS ORDERED: Dexamethasone 20 MG/5 ML VIAL ONE (07:50)
[2022-07-29] MEDS ORDERED: Ondansetron PF 4 MG/2 ML Vial ONE (07:50)
[2022-07-29] MEDS ORDERED: Acetaminophen 325 MG TAB PO PRN (10:48)
[2022-07-29] MEDS ORDERED: Ketorolac Tromethamine 30 MG/ML VIAL IVP PRN (10:48)
[2022-07-29] MEDS ORDERED: Ondansetron PF 4 MG/2 ML Vial IVP PRN (10:48)
[2022-07-29] MEDS ORDERED: Fentanyl 100 MCG/2 ML VIAL ONE (10:57)
[2022-07-29] MEDS ORDERED: HYDROmorphone 0.5 MG/0.5 ML SYRINGE ONE ×2 (11:30→11:50)
[2022-07-29] MEDS: Morphine 2 MG/ML VIAL SLOW IVP PRN ×3 (14:02→22:24)
[2022-07-29] MEDS: Sodium Chloride 0.9% 1,000 ML IV SCH (14:02)
[2022-07-29] MEDS: CEFAZOLIN 2 GM in Sodium Chloride 0.9% 100 ML IVPB SCH (15:28)
[2022-07-29] MEDS: hydrALAZINE 25 MG TAB PO SCH ×2 (15:33→21:40)
[2022-07-29] MEDS: HYDROcodone/Acetaminophen 7.5/325 mg Tablet PO PRN ×2 (15:39→21:41)
[2022-07-29] MEDS: Amitriptyline HCl 25 MG TAB PO SCH (21:38)
[2022-07-29] MEDS: DULoxetine 60 MG CAP PO SCH (21:39)
[2022-07-29] MEDS: Gabapentin 100 MG CAP PO SCH (21:39)
[2022-07-29] MEDS: Rosuvastatin 10 MG TAB PO SCH (21:40)
[2022-07-30] MEDS: Morphine 2 MG/ML VIAL SLOW IVP PRN (00:39)
[2022-07-30] MEDS: CEFAZOLIN 2 GM in Sodium Chloride 0.9% 100 ML IVPB SCH (00:39)
[2022-07-30] MEDS: Sodium Chloride 0.9% 1,000 ML IV SCH ×2 (00:46→15:03)
[2022-07-30] MEDS: HYDROcodone/Acetaminophen 7.5/325 mg Tablet PO PRN ×3 (05:47→21:22)
[2022-07-30] MEDS: Levothyroxine Sodium 50 MCG TAB PO SCH (05:49)
[2022-07-30 06:57] LABS: #Lymphocytes 0.6 thou/uL (1.20-3.40); #Monocytes 0.5 thou/uL (0.11-0.59); #Neutrophils 9.8 thou/uL (1.40-6.50); %Eosinophils 0.2 % (0.0-10.0); %Lymphocytes 5.8 % (21.0-51.0); %Monocytes 4.5 % (0.0-10.0); %Neutrophils 89.5 % (42.0-75.0); Hemoglobin 9.7 g/dL (12.0-16.0); Mean Corpuscular Hemoglobin 30.7 pg (27.0-31.0); Mean Platelet Volume 7.3 fL (7.4-10.4); Platelet Count 236 10x3/uL (130-400); RBC Distribution Width 11.8 % (11.5-14.5); Red Blood Cell (RBC) Count 3.15 mill/uL (4.20-5.40); White Blood Cell (WBC) Count 10.9 10x3/uL (4.8-10.8)
[2022-07-30] MEDS ORDERED: DULoxetine 60 MG CAP PO SCH (09:00)
[2022-07-30] MEDS ORDERED: FLU VACC QS2022-23(65YR UP)/PF 240 MCG/0.7 ML SYRINGE IM ONE (09:00)
[2022-07-30] MEDS: Floranex 1 GM Packet PO SCH (09:37)
[2022-07-30] MEDS: Losartan 25 MG TAB PO SCH (09:37)
[2022-07-30] MEDS: Multivit, Therapeutic 1 TAB PO SCH (09:38)
[2022-07-30] MEDS: Estradiol 1 MG TAB PO SCH (09:38)
[2022-07-30] MEDS: Calcium Carbonate 600 MG + Vit D TAB PO SCH (09:38)
[2022-07-30] MEDS: Gabapentin 100 MG CAP PO SCH ×2 (09:38→21:21)
[2022-07-30] MEDS: hydrALAZINE 25 MG TAB PO SCH ×3 (09:38→21:18)
[2022-07-30] MEDS: Alogliptin 6.25 MG TAB PO SCH (09:39)
[2022-07-30] MEDS: Polyethylene Glycol 3350 17 GM Packet PO SCH (09:39)
[2022-07-30] MEDS: Hydrochlorothiazide 25 MG TAB PO SCH (09:42)
[2022-07-30] MEDS ORDERED: Carvedilol 25 MG TAB PO SCH (09:45)
[2022-07-30] MEDS: Fluticasone Propionate Nasal Spray 16 gm Bottle NASAL SCH (09:46)
[2022-07-30] MEDS: Carvedilol 3.125 MG TAB PO SCH (12:43)
[2022-07-30] MEDS: Acetaminophen/Codeine 30-300mg Tablet PO PRN (15:24)
[2022-07-30] MEDS: Carvedilol 25 MG TAB PO SCH (17:31)
[2022-07-30] MEDS: diphenhydrAMINE 25 MG CAP PO PRN (21:18)
[2022-07-30] MEDS: Rosuvastatin 10 MG TAB PO SCH (21:19)
[2022-07-30] MEDS: Amitriptyline HCl 25 MG TAB PO SCH (21:19)
[2022-07-30] MEDS: DULoxetine 60 MG CAP PO SCH (21:19)
[2022-07-31] MEDS: Levothyroxine Sodium 50 MCG TAB PO SCH (05:19)
[2022-07-31] MEDS: Sodium Chloride 0.9% 1,000 ML IV SCH (07:43)
[2022-07-31] MEDS: Alogliptin 6.25 MG TAB PO SCH (08:29)
[2022-07-31] MEDS: Hydrochlorothiazide 25 MG TAB PO SCH (08:30)
[2022-07-31] MEDS: Calcium Carbonate 600 MG + Vit D TAB PO SCH (08:30)
[2022-07-31] MEDS: Carvedilol 25 MG TAB PO SCH (08:30)
[2022-07-31] MEDS: hydrALAZINE 25 MG TAB PO SCH (08:30)
[2022-07-31] MEDS: Multivit, Therapeutic 1 TAB PO SCH (08:30)
[2022-07-31] MEDS: Estradiol 1 MG TAB PO SCH (08:30)
[2022-07-31] MEDS: Fluticasone Propionate Nasal Spray 16 gm Bottle NASAL SCH (08:31)
[2022-07-31] MEDS: Polyethylene Glycol 3350 17 GM Packet PO SCH (08:31)
[2022-07-31] MEDS: Gabapentin 100 MG CAP PO SCH (08:31)
[2022-07-31] MEDS: Losartan 25 MG TAB PO SCH (08:31)
[2022-07-31] MEDS: Floranex 1 GM Packet PO SCH (08:31)
[2022-07-31] MEDS: HYDROcodone/Acetaminophen 7.5/325 mg Tablet PO PRN (08:33)
[2022-07-31 11:14] VITALS: BP 125/71; TEMP 98.3
[2022-07-31] MEDS: diphenhydrAMINE 25 MG CAP PO PRN (11:51)
[2022-07-31] MEDS: Acetaminophen/Codeine 30-300mg Tablet PO PRN (11:51)
== END 2022-07-31 12:35 | disposition home or self-care (01) ==
LOC: SDC 05:54 → SURG B 10:48
PROVIDERS: ADMIT Surgery; ATTEND Surgery
PROC: 01NB0ZZ Release Lumbar Nerve, Open Approach (ICD-10-PCS; principal; 2022-07-29)
PROC: 0SB20ZZ Excision of Lumbar Vertebral Disc, Open Approach (ICD-10-PCS; 2022-07-29)
DX: M48.062 Spinal stenosis, lumbar region with neurogenic claudication (principal); M51.16 Intervertebral disc disorders with radiculopathy, lumbar region; Z79.84 Long term (current) use of oral hypoglycemic drugs; Z79.890 Hormone replacement therapy; Z79.899 Other long term (current) drug therapy; Z20.822 Contact with and (suspected) exposure to COVID-19
CPT/HCPCS: 63047; 63048 ×2; 85025; 96374; 96375; 96376 ×2; G0378 ×3; U0002; 36415; C1894; J1100; J1170; J2272; J2405; J2704; J3010; J3370; J3490; J7050

== ENCOUNTER 2022-12-28 12:10 | Outpatient (CLI) | payer MEDICARE | END 2022-12-28 12:11 | disposition home or self-care (01) | LOC: RAD 12:10 | PROVIDERS: ATTEND Surgery | DX: M54.50 Low back pain, unspecified (principal); Z98.890 Other specified postprocedural states | CPT/HCPCS: 72100 ==

== ENCOUNTER 2023-01-04 10:31 | Outpatient (CLI) | payer MEDICARE | END 2023-01-04 10:32 | disposition home or self-care (01) | LOC: BICULT 10:31 | PROVIDERS: ATTEND Internal Medicine Gastroenterology | DX: K58.1 Irritable bowel syndrome with constipation (principal); K76.0 Fatty (change of) liver, not elsewhere classified; K21.9 Gastro-esophageal reflux disease without esophagitis; K80.20 Calculus of gallbladder without cholecystitis without obstruction | CPT/HCPCS: 76705 ==

== ENCOUNTER 2024-05-14 13:00 | Outpatient (CLI) | payer MEDICARE | END 2024-05-14 13:01 | disposition home or self-care (01) | LOC: BICMRI 13:00 | PROVIDERS: ATTEND Physical Medicine & Rehabilitation Pain Medicine | DX: M47.812 Spondylosis without myelopathy or radiculopathy, cervical region (principal); M48.02 Spinal stenosis, cervical region | CPT/HCPCS: 72141 ==

== ENCOUNTER 2024-06-11 08:34 | Outpatient (CLI) | payer MEDICARE ==
[2024-06-11] MEDS ORDERED: Iopamidol 370 76% 100 ML VIAL ONE (15:14)
== END 2024-06-11 08:35 | disposition home or self-care (01) ==
LOC: BICCT 08:34
PROVIDERS: ATTEND Internal Medicine Gastroenterology
DX: K59.09 Other constipation (principal); R14.0 Abdominal distension (gaseous); K56.699 Other intestinal obstruction unspecified as to partial versus complete obstruction; K80.20 Calculus of gallbladder without cholecystitis without obstruction; M47.816 Spondylosis without myelopathy or radiculopathy, lumbar region; S32.019A Unspecified fracture of first lumbar vertebra, initial encounter for closed fracture
CPT/HCPCS: 36415; 74177; 82565

== ENCOUNTER 2024-06-26 12:49 | Emergency (ER) | payer MEDICARE ==
[2024-06-26 13:37] LABS: #Basophils 0.04 10x3/uL (0.0-0.2); %Basophils 0.4 % (0.0-1.0); %Eosinophils 2.4 % (0.0-10.0); %Lymphocytes 8.3 % (21.0-51.0); %Neutrophils 84.5 % (42.0-75.0); Hematocrit 33.5 % (36.0-47.0); Hemoglobin 11.1 g/dL (12.0-16.0); Mean Corpuscular HGB CONC 33.1 g/dL (32.0-36.0); Mean Corpuscular Hemoglobin 29.9 pg (27.0-31.0); Mean Corpuscular Volume 90.3 fL (78.0-98.0); Mean Platelet Volume 9.8 fL (7.4-10.4); Platelet Count 217 10x3/uL (130-400); RBC Distribution Width 13.2 % (11.5-14.5); Red Blood Cell (RBC) Count 3.71 mill/uL (4.20-5.40)
[2024-06-26 14:01] LABS: ALT (SGPT) 16 U/L (Less than 34); AST (SGOT) 26 U/L (11-34); Albumin 4.1 g/dL (3.1-4.5); Alkaline Phosphatase 101 U/L (40-110); Anion Gap 13 mmol/L (10-20); BUN (Urea Nitrogen) 21 mg/dL (9.8-20.1); Bilirubin, Total 0.6 mg/dL (0.3-1.2); Calc. Creatinine Clearance 0 mL/min (70-130); Calcium 9.6 mg/dL (7.8-10.44); Carbon Dioxide 24 mmol/L (23-31); Chloride 105 mmol/L (98-107); Estimated GFR 38; Globulin 2.8 g/dL (2.4-3.5); Glucose 243 mg/dL (83-110); Lipase 15 U/L (8-78); Potassium 4.4 mmol/L (3.5-5.1); Protein, Total 6.9 g/dL (5.8-8.1); Sodium 138 mmol/L (136-145)
[2024-06-26 15:58] LABS: Bilirubin Negative (Negative); Blood, Urine 3+ (Negative); CAUTI Indications for Culture Dysuria,urgency,freq; Glucose, Urine (Dipstick) Normal (Negative); Ketone, Urine Negative (Negative); Leukocyte 500 Leu/uL (Negative); Nitrite Negative (Negative); Protein, Urine (Dipstick) 200 mg/dL (Neg-Trace); RBC/HPF Greater than 50 HPF (0-3); Specific Gravity, Urine 1.023 (1.002-1.036); Urobilinogen Normal mg/dL (Less than 2); WBC/HPF Greater than 50 HPF (0-3)
[2024-06-26 15:59] LABS: Bacteria/HPF 1+ HPF (None Seen)
[2024-06-26 16:00] LABS: Clarity Turbid (Clear); Urine Culture Reflex Yes Yes
== END 2024-06-26 16:45 | disposition home or self-care (01) ==
LOC: ERS 12:49
DX: N39.0 Urinary tract infection, site not specified (principal); I10 Essential (primary) hypertension; E11.9 Type 2 diabetes mellitus without complications
CPT/HCPCS: 36415; 80053; 81001; 83605; 83690; 85025; 87086; 99283